=== PATIENT | female | born 1980 | race Hispanic/Latino ===

== ENCOUNTER 2021-12-06 21:09 | Emergency (ER) | payer OTHER ==
[2021-12-06 22:58] LABS: APPEARANCE,URINE Clear (CLEAR); BILIRUBIN,URINE Negative (NEGATIVE); COLOR,URINE Yellow (YELLOW); GLUCOSE, URINE (UA) Negative (NEGATIVE); KETONES,URINE Negative (NEGATIVE); LEUKOCYTE ESTERASE ,URINE Negative (NEGATIVE); NITRATE,URINE Negative (NEGATIVE); OCCULT BLOOD,URINE Trace (NEGATIVE); PROTEIN,URINE Negative (NEGATIVE)
[2021-12-06 22:59] LABS: BASOPHILS % (AUTO) 0.4 % (0.0-5.0); EOSINOPHILS % (AUTO) 0.5 % (0.0-8.0); HEMATOCRIT 45.2 % (36-48); LYMPHOCYTES % (AUTO) 30.7 % (21.0-51.0); MEAN CORPUSCULAR HGB CONC 34.5 g/dL (32.0-36.0); MEAN CORPUSCULAR VOLUME 86.9 fL (79-99); MONOCYTES % (AUTO) 6.2 % (3.0-13.0); PLATELET COUNT (AUTO) 218 K/uL (130-400); RED CELL DISTRIBUTION WIDTH 11.7 % (11.0-15.5); WHITE BLOOD COUNT (AUTO) 9.2 K/uL (4.8-10.8)
[2021-12-06] MEDS ORDERED: KETOROLAC 15MG/ML VIAL (15MG/ML) IV ONE (23:00)
[2021-12-06] MEDS ORDERED: ONDANSETRON 4MG INJ IVP ONE (23:00)
[2021-12-06] MEDS ORDERED: MORPHINE 4 MG SYG IVP ONE (23:00)
[2021-12-06] MEDS ORDERED: 0.9%NACL 1000ML 1,000 ML IV ONE (23:00)
[2021-12-06 23:09] LABS: CREATININE 0.8 mg/dL (0.5-1.5); POTASSIUM 3.6 mmol/L (3.5-5.1)
[2021-12-06 23:14] LABS: ALBUMIN 4.4 g/dL (3.5-5.0); BILIRUBIN,TOTAL 1.6 mg/dL (0.2-1.0); TOTAL PROTEIN, SERUM 7.9 g/dL (6.0-8.3)
[2021-12-06 23:20] VITALS: BP 135/72
[2021-12-06 23:22] LABS: BACTERIA,URINE Few /HPF (None Seen)
[2021-12-06] MEDS ORDERED: POLY17PO4 PO (23:56)
== END 2021-12-07 00:20 | disposition home or self-care (01) ==
LOC: EDH 21:09
DX: K59.00 Constipation, unspecified (principal); R11.0 Nausea; Z88.1 Allergy status to other antibiotic agents; Z90.49 Acquired absence of other specified parts of digestive tract
CPT/HCPCS: 36415; 74176; 80053; 81001; 85025; 93005; 96361; 96374; 96375; 99285; J1885; J2270; J2405; J7030

== ENCOUNTER 2024-04-26 11:24 | Emergency (ER) | payer OTHER ==
[~2024-04-26] VITALS: Ht 160 cm; Wt 73.5 kg
[~2024-04-26 11:24] MED LIST: POLY17PO4 PO
[2024-04-26 12:06] LABS: BASOPHILS # (AUTO) 0.05 K/uL (0.00-0.20); BASOPHILS % (AUTO) 0.7 % (0.0-5.0); EOSINOPHILS # (AUTO) 0.02 K/uL (0.00-0.70); EOSINOPHILS % (AUTO) 0.3 % (0.0-8.0); HEMATOCRIT 42.3 % (36-48); IMMATURE GRANULOCYTE ABSOLUTE 0.01 K/uL (0-1); LYMPHOCYTES # (AUTO) 1.4 K/uL (1.0-4.8); LYMPHOCYTES % (AUTO) 18.2 % (21.0-51.0); MEAN CORPUSCULAR HEMOGLOBIN 30.7 pg (27.0-33.0); MEAN CORPUSCULAR HGB CONC 35.5 g/dL (32.0-36.0); MEAN CORPUSCULAR VOLUME 86.7 fL (79-99); MONOCYTES # (AUTO) 0.4 K/uL (0.1-1.0); MONOCYTES % (AUTO) 5.6 % (3.0-13.0); NEUTROPHILS # (AUTO) 5.7 K/uL (1.8-7.7); NEUTROPHILS % (AUTO) 75.1 % (40.0-77.0); PLATELET COUNT (AUTO) 189 K/uL (130-400); RED BLOOD CELL COUNT(AUTO) 4.88 MIL/uL (4.00-5.50); RED CELL DISTRIBUTION WIDTH 11.6 % (11.0-15.5); WHITE BLOOD COUNT (AUTO) 7.6 K/uL (4.8-10.8)
[2024-04-26 12:25] LABS: ALBUMIN 4.2 g/dL (3.5-5.0); BILIRUBIN,TOTAL 2.1 mg/dL (0.2-1.0); CREATININE 0.8 mg/dL (0.5-1.0); POTASSIUM 3.9 mmol/L (3.5-5.1); TOTAL PROTEIN, SERUM 7.5 g/dL (6.0-8.3)
[2024-04-26] MEDS: mecliZINE HCL 25 MG TABLET PO STA (12:38)
[2024-04-26] MEDS: 0.9%NACL 1000ML 1,000 ML IV STA (12:38)
[2024-04-26 12:41] LABS: APPEARANCE,URINE CLEAR (CLEAR); BILIRUBIN,URINE NEGATIVE (NEGATIVE); COLOR,URINE COLORLESS (YELLOW); GLUCOSE, URINE (UA) NEGATIVE (NEGATIVE); KETONES,URINE NEGATIVE (NEGATIVE); LEUKOCYTE ESTERASE ,URINE NEGATIVE Leu/uL (NEGATIVE); NITRATE,URINE NEGATIVE (NEGATIVE); PROTEIN,URINE NEGATIVE (NEGATIVE); UROBILINOGEN,URINE 0.2 mg/dL (0.2-1.0)
[2024-04-26 12:51] LABS: ADD UA MICROSCOPIC YES
[2024-04-26 12:55] LABS: RBC,URINE 0-1 /HPF (0-1); SQUAMOUS EPITHELIAL CELL,UR RARE /HPF (0-2); WBC,URINE 0-1 /HPF (0-1)
[2024-04-26] MEDS ORDERED: MECL-302 PO (13:55)
[2024-04-26 14:04] VITALS: BP 135/76; PULSE 77; RESP 18; TEMP 98.7; O2SAT 98
== END 2024-04-26 14:10 | disposition home or self-care (01) ==
LOC: EDH 11:24
DX: R42 Dizziness and giddiness (principal); Z88.1 Allergy status to other antibiotic agents; Z90.49 Acquired absence of other specified parts of digestive tract; Z90.710 Acquired absence of both cervix and uterus
CPT/HCPCS: 99284; 96360; 70450; 84484; 80053; 85025; 81001; 36415; 93005; J7030

== ENCOUNTER 2025-02-22 10:03 | Emergency (ER) | payer OTHER ==
[~2025-02-22] VITALS: Ht 160 cm; Wt 72.6 kg
[~2025-02-22 10:03] MED LIST changes: +MECL-302 PO
--- NOTE | 2025-02-22 10:31 | ERN ---
General Chief Complaint: Neck Pain Stated Complaint: NECK PAIN Time Seen by MD: 10:04 Source: patient History of Present Illness Initial Comments Patient is a 44-year-old female coming in complaining of neck discomfort. Per patient this has been ongoing since May. Patient states that she was scheduled for an MRI but was not able to has been performed due to financial res traints. Patient also states that lately she has been having tingling running down bilateral arms. Allergies: Coded Allergies: azithromycin (Unverified Allergy, Mild, 05/16/18) ciprofloxacin (Unverified Allergy, Mild, 05/16/18) levofloxacin (Unverified Allergy, Mild, 05/16/18) propoxyphene (Unverified Allergy, Mild, 05/16/18) Uncoded Allergies: NAPSYL (Adverse Reaction, Mild, 05/16/18) SULBACTAM SODIUM (Adverse Reaction, Mild, 05/16/18) Home Meds Active Scripts Meclizine HCl (Meclizine HCl) 25 Mg Tablet, 25 MG PO TIDP PRN for DIZZINESS for 14 Days, #42 TAB Prov:MICHELLE CHAVEZ QUALITY SYSTEMS ENGINEER 04/26/24 Polyethylene Glycol 3350 (Miralax) 17 Gm Powd.pack, 17 GM PO DAILY, #1 CANISTER Prov:DARYA CHAMORROP 12/06/21 Past Medical History Past Medical History: No Pertinent History Medical History Other: UTERINE FIBROID, NECK/SPINAL INJURY Past Surgical History: Hysterectomy, Cholecystectomy ROS Dictation CONSTITUTIONAL: No chills, no fever, no weakness, no diaphoresis, no malaise. HEAD/FACE: No signs of trauma. EENT: No eye pain, no blurred vision, no tearing, no double vision, no ear pain, no ear discharge, no nose pain, no nasal congestion, no throat pain, no throat swelling, no mouth pain. RESPIRATORY: No cough, no orthopnea, no SOB, no stridor, no wheezing. CARDIOVASCULAR: No chest pain, no edema, no palpitations, no syncope. GASTROINTESTINAL/ABDOMINAL: No abdominal pain, no constipation, no diarrhea, no nausea, no vomiting. GENITOURINARY: No abnormal discharge, no dysuria, no frequent urination, no hematuria. No complaints of pain in the genitals. MUSCULOSKELETAL: No back pain, no gout, no joint pain, no joint swelling, muscle pain, muscle stiffness, no neck pain. INTEGUMENTARY: No change in color, no change in hair/nails, no dryness, no lesion, no lumps, no rash. NEUROLOGICAL/PSYCH: No anxiety, not depressed, no emotional problem, no headache, no numbness, no pre-existing deficit, no history of seizures, no t remors, no weakness. HEMATOLOGIC/LYMPHATIC: Not anemic, no history of blood clots, no apparent bleeding, no bruising, glands not swollen. All Systems Negative, Except as Noted. Physical Exam Physical Exam Dictation VITAL SIGNS: Reviewed. GENERAL APPEARANCE: Alert, oriented x3, no acute distress, obese. HEAD AND FACE: Non-traumatic. CONGESTION MAXILLARY ETHMOID EYES: PERRL, pink conjunctivas, eyelid no trauma, anterior chamber clear. EARS: Pinnas intact and no signs of trauma or erythema. Ear canals clear and no discharge. TMs erythema. NOSE: No discharge, no bleeding. BILATERAL NASAL TURBINATE SWELLING OROPHARYNX: Mouth normal, teeth no caries, tongue pink. Pharynx erythema. Tonsils no exudates, no abscesses noted. Mucous membrane moist. NECK: Supple, non-tender, no thyromegaly, no masses, no JVD, no bruits. BREAST: Deferred. CHEST: No tenderness, no crepitus, no paradoxical movement, no retractions. LUNGS: Clear, well-ventilated, symmetric, no rales, no wheezing, no rhonchi, no stridor, good breath sounds bilaterally. HEART: Regular rate, regular rhythm, no murmur, no gallops. VASCULAR: No peripheral edema. ABDOMEN: Soft, positive bowel sounds, nondistended, no guarding, nontender, no rebound, no masses no hepatomegaly, no splenomegaly, no Kathleen's sign, no hernias. RECTAL: Deferred. GENITAL: Deferred. NEUROLOGICAL: Normal speech, gross motor function intact, gross sensory function intact. MUSCULOSKELETAL: Neck nontender, full range of motion, back nontender, full range of motion. EXTREMITIES: Nontender, full range of motion. SKIN: Color pink, dry, no turgor, no rash, no lacerations, no abrasions, no contusions. LYMPHATICS: Deferred. Results Laboratory and Microbiology Lab and Micro Result Laboratory Tests Test 02/22/25 10:39 02/22/25 10:54 White Blood Count 7.3 K/uL (4.8-10.8) Red Blood Count 5.00 MIL/uL (4.00-5.50) Hemoglobin 15.0 g/dL (12.0-16.0) Hematocrit 42.6 % (36-48) Mean Corpuscular Volume 85.2 fL (79-99) Mean Corpuscular Hemoglobin 30.0 pg (27.0-33.0) Mean Corpuscular Hemoglobin Concent 35.2 g/dL (32.0-36.0) Red Cell Distribution Width 11.8 % (11.0-15.5) Platelet Count 172 K/uL (130-400) Mean Platelet Volume 11.6 fL (7.5-10.5) H Immature Granulocyte % (Auto) 0.3 % (0-1) Neutrophils (%) (Auto) 70.3 % (40.0-77.0) Lymphocytes (%) (Auto) 23.7 % (21.0-51.0) Monocytes (%) (Auto) 4.9 % (3.0-13.0) Eosinophils (%) (Auto) 0.4 % (0.0-8.0) Basophils (%) (Auto) 0.4 % (0.0-5.0) Neutrophils # (Auto) 5.1 K/uL (1.8-7.7) Lymphocytes # (Auto) 1.7 K/uL (1.0-4.8) Monocytes # (Auto) 0.4 K/uL (0.1-1.0) Eosinophils # (Auto) 0.03 K/uL (0.00-0.70) Basophils # (Auto) 0.03 K/uL (0.00-0.20) Absolute Immature Granulocyte (auto 0.02 K/uL (0-1) Nucleated Red Blood Cells 0.0 % (0.0-0.19) Sodium Level 139 mmol/L (136-145) Potassium Level 3.8 mmol/L (3.5-5.1) Chloride Level 103 mmol/L (101-111) Carbon Dioxide Level 28 mmol/L (21-32) Blood Urea Nitrogen 6 mg/dL (7-18) L Creatinine 0.7 mg/dL (0.5-1.0) Glomerular Filtration Rate Calc 109 mL/min (>90) Random Glucose 95 mg/dL (70-105) Total Calcium 9.2 mg/dL (8.5-10.1) Urine Color COLORLESS (YELLOW) Urine Appearance CLEAR (CLEAR) Urine pH 6.0 (5.0-8.0) Urine Specific [place] 1.002 (1.001-1.031) Urine Protein NEGATIVE mg/dL (NEGATIVE) Urine Glucose (UA) NEGATIVE mg/dL (NEGATIVE) Urine Ketones NEGATIVE mg/dL (NEGATIVE) Urine Occult Blood +- (TRACE) (NEGATIVE) H Urine Nitrate NEGATIVE (NEGATIVE) Urine Bilirubin NEGATIVE mg/dL (NEGATIVE) Urine Urobilinogen 0.2 mg/dL (0.2-1.0) Urine Leukocyte Esterase NEGATIVE Devi/uL Urine RBC 2-5 /HPF (0-1) H Urine WBC 0-1 /HPF (0-1) Urine Squamous Epithelial Cells FEW /HPF (0-2) Urine Bacteria RARE /HPF (None Seen) Urine HCG, Qualitative NEGATIVE (NEGATIVE) Labs Reviewed?: Yes EKG/XRAY/US/CT/MRI X-RAY Comment --CERVICAL X-RAY- NAD MDM MDM: Differential diagnosis: SINUSITIS, CHRONIC NECK PAIN Rationale: Tests considered and ordered secondary to shared decision making include: labs, ECG and radiology Previous outside records reviewed: Old ER visits. Risk of complication and/or morbidity or mortality of patient management: None Medications-Per medication reconciliation Need for hospitalization: Patient does meet criteria for hospitalization. Need for emergency major/minor surgery: No There are no social concerns with this patient. Prescription drug management Prescriptions will include symptomatic care Patient's prior external medical records from other ER visits were reviewed by me as indicated. Prior testing and results from previous visits were reviewed. Prior tests were taken into account with medical decision making and resource utilization, independent historian/historians were used to obtain complete medical history. I independently interpreted the test that were performed, results were reviewed by me and considered findings on radiology if ordered. Medical management and examination interpretation discussions were had by me with other qualified healthcare professionals as indicated for the patient's care. ED Course Orders Procedure Category Date Status Time Cbc With Differential LAB 02/22/25 Complete 10:19 Basic Metabolic Panel LAB 02/22/25 Complete 10:19 Urinalysis LAB 02/22/25 Complete W/Microscopic 10:19 Cerv Spine 2-3vws RAD 02/22/25 Taken 10:19 Meclizine Hcl 25 Mg PHA 02/22/25 Complete (Antivert 25 Mg) 11:30 ,Urine Test LAB 02/22/25 Complete 11:34 Ketorolac PHA 02/22/25 Complete Tromethamine 15mg/Ml 12:30 Orphenadrine Citrate PHA 02/22/25 Complete (Norflex) 12:30 Current Medications Medications (Trade) Dose Ordered Sig/Lindsay Route PRN Reason Start Time Stop Time Status Last Admin Dose Admin Ketorolac Tromethamine (toRADol) 15 mg ONCE ONCE IV 02/22/25 12:30 02/22/25 12:31 DC 02/22/25 12:33 Meclizine HCl (ANTIvert 25 mg) 25 mg ONCE ONCE PO 02/22/25 11:30 02/22/25 11:31 DC 02/22/25 11:35 Orphenadrine Citrate (Norflex) 60 mg ONCE ONCE IM 02/22/25 12:30 02/22/25 12:31 DC 02/22/25 12:33 Vital Signs Date Time Temp Pulse Resp B/P (MAP) Pulse Ox O2 Delivery O2 Flow Rate FiO2 02/22/25 11:25 98.1 77 20 148/82 99 Room Air* 0 21 02/22/25 10:26 98.1 77 20 148/82 98 Room Air 0 DX & DISP Disposition: Discharge Departure Impression: Primary Impression: Vertigo Additional Impression: Sinusitis, acute maxillary Condition: Stable Scripts Loratadine (Loratadine) 10 Mg Tablet 1 TAB PO DAILY for allergy symptoms for 30 Days, #30 TAB 0 Refills Prov: RITA VILLEGAS MD 02/22/25 Fluticasone Propionate (Flonase Nasal [place]) 50 Mcg/Actuation [place] 2 SPRAY NS DAILY for 30 Days, #16 GM 0 Refills Prov: RITA VILLEGAS MD 02/22/25 Amoxicillin/Potassium Clav (Amox Tr-K Clv 875-125 mg Tab) 875 Mg-125 Mg Tablet 1 TAB PO BID for 10 Days, #20 TAB 0 Refills Prov: RITA VILLEGAS MD 02/22/25 Additional Instructions: FOLLOW-UP WITH PRIMARY CARE PROVIDER IN 1 TO 2 DAYS. TAKE MEDICATIONS DIRECTED HERE IN THE EMERGENCY ROOM. OKAY TO CONTINUE HOME MEDICATIONS UNLESS OTHERWISE DISCUSSED DURING YOUR VISIT IN THE EMERGENCY ROOM TODAY. RETURN TO YOUR NEAREST EMERGENCY ROOM IF SYMPTOMS WORSEN OR IF THERE IS NO IMPROVEMENT. CALL 911 IF YOU NEED IMMEDIATE ASSISTANCE. TAKE TYLENOL [id number] NEEDED AND IF NO CONTRAINDICATIONS ARE PRESENT. INCREASE ORAL HYDRATION. A WOUND CULTURE OR URINE CULTURE WAS ORDERED HERE IN THE EMERGENCY ROOM DEPARTMENT PLEASE FOLLOW-UP WITH PRIMARY CARE PROVIDER AND ADVISE THEM TO GET REPORTS FROM OUR FACILITY. IF YOU HAD ANY GORDON WRAP/SPLINTS THAT WERE APPLIED HERE, PLEASE DO NOT REMOVE THEM UNTIL YOU SEE YOUR PRIMARY CARE OR SPECIALTY. REFERRALS: Referrals: ALVIN CABRERA (PCP) Time of Disposition: 12:44 RITA VILLEGAS MD Feb 22, 2025 10:31
[2025-02-22 11:25] LABS: IMMATURE GRANULOCYTE ABSOLUTE 0.02 K/uL (0-1); NUCLEATED RED BLOOD CELLS 0.0 % (0.0-0.19); PLATELET COUNT (AUTO) 172 K/uL (130-400); RED BLOOD CELL COUNT(AUTO) 5.00 MIL/uL (4.00-5.50); RED CELL DISTRIBUTION WIDTH 11.8 % (11.0-15.5); WHITE BLOOD COUNT (AUTO) 7.3 K/uL (4.8-10.8)
[2025-02-22 11:34] LABS: CREATININE 0.7 mg/dL (0.5-1.0); GLOMERULAR FILTR. RATE CALC 109.0 mL/min (>90); GLUCOSE,RANDOM 95.0 mg/dL (70-105); SODIUM SERUM 139.0 mmol/L (136-145); UREA NITROGEN, BLOOD 6.0 mg/dL (7-18)
[2025-02-22 11:39] LABS: APPEARANCE,URINE CLEAR (CLEAR); GLUCOSE, URINE (UA) NEGATIVE (NEGATIVE); LEUKOCYTE ESTERASE ,URINE NEGATIVE Leu/uL (NEGATIVE); NITRATE,URINE NEGATIVE (NEGATIVE); OCCULT BLOOD,URINE +- (TRACE) (NEGATIVE)
[2025-02-22 12:05] LABS: SQUAMOUS EPITHELIAL CELL,UR FEW /HPF (0-2)
[2025-02-22] MEDS: ORPHENADRINE 60MG/2ML IM ONE (12:33)
[2025-02-22] MEDS ORDERED: FLUT16H NS (12:45)
[2025-02-22] MEDS ORDERED: AMOX1TAB16 PO (12:45)
[2025-02-22] MEDS ORDERED: LORA10TA7 PO (12:45)
[2025-02-22 12:46] VITALS: BP 142/80; PULSE 75; RESP 20; TEMP 98.1; O2SAT 98
--- NOTE | 2025-02-22 13:16 | HMCIMG ---
EXAM: CR Cervical spine, 2 View. CLINICAL HISTORY: neck pain COMPARISON: None provided. FINDINGS: BONES: No acute fracture or aggressive appearing osseous lesion. DISCS/DEGENERATIVE CHANGES: Mild disc disease at C6-C7. Posterior vertebral body alignment is within normal limits. SOFT TISSUES: No prevertebral soft tissue swelling. The visualized lung apices are clear. IMPRESSION: 1. No acute findings. 2. Mild disc disease at C6-C7. /[place]
== END 2025-02-22 12:48 | disposition home or self-care (01) ==
LOC: EDH 10:03
DX: R42 Dizziness and giddiness (principal); J01.00 Acute maxillary sinusitis, unspecified; Z88.1 Allergy status to other antibiotic agents; Z90.49 Acquired absence of other specified parts of digestive tract; Z90.710 Acquired absence of both cervix and uterus
CPT/HCPCS: 99284; 96374; 80048; 85025; 81001; 81025; 36415; 72040; 96372; J1885; J2360

== ENCOUNTER 2025-05-18 15:58 | Emergency (ER) | payer OTHER ==
[~2025-05-18] VITALS: Ht 160 cm; Wt 83.9 kg
[~2025-05-18 15:58] MED LIST changes: +AMOX1TAB16 PO; +FLUT16H NS; +LORA10TA7 PO
--- NOTE | 2025-05-18 16:27 | ERN ---
ED Note History of Present Illness Stated Complaint: HEADACHE Chief Complaint: Headache Time Seen by MD: 16:03 Dictation: PATIENT IS A 45-YEAR-OLD FEMALE HERE WITH HER WITH COMPLAINTS OF HAVING CHRONIC NECK AND OCCIPITAL HEADACHE THAT RUNS TO BILATERAL TEMPORAL AREAS ONSET WAS TWO YEARS PRIOR TO ARRIVAL ON-CALL. NO FEVER NO CHILLS NO NAUSEA VOMITING. SHE STATES SHE HAS BEEN WAITING SINCE JUNE OF THIS YEAR FOR AN MRI OF THE BRAIN HOWEVER THEY COULD NOT GET IT APPROVED BY YOUR INSURANCE. SHE SAW HER DOCTOR ABOUT THE SAME COMPLAINT TWO DAYS AGO HE PRESCRIBED TYLENOL NO. 3, SHE TOOK ONE TODAY. SHE HAS ALREADY BEEN TO THE EMERGENCY ROOM SEVERAL TIMES FOR THE SAME COMPLAINT HAS HAD A PRIOR CT OF THE HEAD BACK IN APRIL OF 2024 WHICH WAS NEGATIVE AND X-RAY OF HER CERVICAL SPINE WHICH WAS NEGATIVE EXCEPT FOR DEGENERATIVE CHANGES SEE SIX C7. NIH IS 0. Allergies: Coded Allergies: azithromycin (Unverified Allergy, Mild, 05/16/18) ciprofloxacin (Unverified Allergy, Mild, 05/16/18) levofloxacin (Unverified Allergy, Mild, 05/16/18) propoxyphene (Unverified Allergy, Mild, 05/16/18) Uncoded Allergies: NAPSYL (Adverse Reaction, Mild, 05/16/18) SULBACTAM SODIUM (Adverse Reaction, Mild, 05/16/18) Home Meds Active Scripts Loratadine (Loratadine) 10 Mg Tablet, 1 TAB PO DAILY for allergy symptoms for 30 Days, #30 TAB 0 Refills Prov:RITA VILLEGAS MD 02/22/25 Fluticasone Propionate (Flonase Nasal [place]) 50 Mcg/Actuation [place], 2 SPRAY NS DAILY for 30 Days, #16 GM 0 Refills Prov:RITA VILLEGAS MD 02/22/25 Amoxicillin/Potassium Clav (Amox Tr-K Clv 875-125 mg Tab) 875 Mg-125 Mg Tablet, 1 TAB PO BID for 10 Days, #20 TAB 0 Refills Prov:RITA VILLEGAS MD 02/22/25 Meclizine HCl (Meclizine HCl) 25 Mg Tablet, 25 MG PO TIDP PRN for DIZZINESS for 14 Days, #42 TAB Prov:MICHELLE CHAVEZ DOUGH MAKER 04/26/24 Polyethylene Glycol 3350 (Miralax) 17 Gm Powd.pack, 17 GM PO DAILY, #1 CANISTER Prov:FITTING,ROXANA-TAIWO ORDER ENTRY TECHNICIAN 12/06/21 Past Medical History Past Medical History: No Pertinent History Additional Past Medical Hx: UTERINE FIBROID, NECK/SPINAL INJURY Surgical History: Hysterectomy, Cholecystectomy History: Not Applicable RN Note Reviewed/Agreed w/PFSH: Yes Review of System Dictation CONSTITUTIONAL: NEGATIVE EXCEPT FOR HPI HEAD/FACE: NEGATIVE EXCEPT FOR HPI EENT: NEGATIVE EXCEPT FOR HPI RESPIRATORY: NEGATIVE EXCEPT FOR HPI GASTROINTESTINAL/ABDOMINAL: NEGATIVE EXCEPT FOR HPI GENITOURINARY: NEGATIVE EXCEPT FOR HPI MUSCULOSKELETAL: NEGATIVE EXCEPT FOR HPI CHRONIC NECK PAIN TWO YEARS INTEGUMENTARY: NEGATIVE EXCEPT FOR HPI NEUROLOGICAL/PSYCH: NEGATIVE EXCEPT FOR HPI BILATERAL OCCIPITAL HEADACHE THAT RADIATES TO THE BILATERAL TEMPORAL AREAS. TWO YEAR HEMATOLOGIC/LYMPHATIC: NEGATIVE EXCEPT FOR HPI ALL SYSTEMS NEGATIVE, EXCEPT NOTED ABOVE. 13 POINT REVIEW OF SYSTEMS ASSESSED AND ALL NEGATIVE EXCEPT FOR ABOVE. Initial Vital Sign VS Vital Signs Date Time Temp Pulse Resp B/P (MAP) Pulse Ox O2 Delivery O2 Flow Rate FiO2 05/18/25 16:01 97.5 80 16 152/83 98 Room Air 0 Physical Exam Dictation VITAL SIGNS REVIEWED GENERAL APPEARANCE: ALERT, ORIENTED X 3, MODERATE ACUTE DISTRESS, WELL DEVELOPED, NOURISHED. HEAD AND FACE: NON-TRAUMATIC. EYES: PERRL, PINK CONJUNCTIVAS, EYELID NO TRAUMA, ANTERIOR CHAMBER WITH ARCUS SENILIS. EARS: PINNAS INTACT AND NO SIGNS OF TRAUMA OR ERYTHEMA EAR CANALS CLEAR AND NO DISCHARGE TM NO ERYTHEMA NOSE: NO DISCHARGE, NO BLEEDING. OROPHARYNX: MOUTH NORMAL, TONGUE PINK, PHARYNX CLEAR,NO ERYTHEMA, TONSILS NO EXUDATES, NO ABSCESSES NOTED, MUCOUS MEMBRANE MOIST NECK: SUPPLE, NON-TENDER, NO THYROMEGALY, NO MASSES, NO JVD, NO BRUITS BREAST:DEFERRED CHEST:NO TENDERNESS, NO CREPITUS, NO PARADOXICAL MOVEMENT, NO RETRACTIONS LUNGS:CLEAR, WELL-VENTILATED, SYMMETRIC, NO RALES, NO WHEEZING, NO RHONCHI, NO STRIDOR, GOOD BREATH SOUNDS BILATERALLY HEART: REGULAR RATE, REGULAR RHYTHM, NO MURMUR, NO GALLOPS VASCULAR: NO PERIPHERAL EDEMA, ABDOMEN: SOFT, POSITIVE BOWEL SOUNDS, NONDISTENDED, NO GUARDING, NONTENDER, NO REBOUND, NO MASSES NO HEPATOMEGALY, NO SPLENOMEGALY, NO SALINAS'S SIGN, NO HERNIAS. RECTAL: DEFERRED GENITAL: DEFERRED NEUROLOGICAL: DIFFUSE MILD POSTERIOR CERVICAL TENDERNESS. NO STEP-OFFS, FULL RANGE OF MOTION, BACK NONTENDER, FULL RANGE OF MOTION, NEUROVASCULAR CMS INTACT TO ALL EXTREMITIES EXTREMITIES: NONTENDER, FULL RANGE OF MOTION SKIN: COLOR PINK, DRY, NO TURGOR, NO RASH, NO LACERATIONS, NO ABRASIONS, NO CONTUSIONS. LYMPHATIC: DEFERRED Results (Laboratory/Radiology) Laboratory/Radiology Laboratory Tests Test 05/18/25 17:11 White Blood Count 10.3 K/uL (4.8-10.8) Red Blood Count 5.11 MIL/uL (4.00-5.50) Hemoglobin 15.4 g/dL (12.0-16.0) Hematocrit 44.5 % (36-48) Mean Corpuscular Volume 87.1 fL (79-99) Mean Corpuscular Hemoglobin 30.1 pg (27.0-33.0) Mean Corpuscular Hemoglobin Concent 34.6 g/dL (32.0-36.0) Red Cell Distribution Width 11.8 % (11.0-15.5) Platelet Count 242 K/uL (130-400) Mean Platelet Volume 10.6 fL (7.5-10.5) H Immature Granulocyte % (Auto) 0.3 % (0-1) Neutrophils (%) (Auto) 69.1 % (40.0-77.0) Lymphocytes (%) (Auto) 25.0 % (21.0-51.0) Monocytes (%) (Auto) 4.9 % (3.0-13.0) Eosinophils (%) (Auto) 0.3 % (0.0-8.0) Basophils (%) (Auto) 0.4 % (0.0-5.0) Neutrophils # (Auto) 7.2 K/uL (1.8-7.7) Lymphocytes # (Auto) 2.6 K/uL (1.0-4.8) Monocytes # (Auto) 0.5 K/uL (0.1-1.0) Eosinophils # (Auto) 0.03 K/uL (0.00-0.70) Basophils # (Auto) 0.04 K/uL (0.00-0.20) Absolute Immature Granulocyte (auto 0.03 K/uL (0-1) Nucleated Red Blood Cells 0.0 % (0.0-0.19) Sodium Level 138 mmol/L (136-145) Potassium Level 3.7 mmol/L (3.5-5.1) Chloride Level 101 mmol/L (101-111) Carbon Dioxide Level 27 mmol/L (21-32) Blood Urea Nitrogen 8 mg/dL (7-18) Creatinine 0.7 mg/dL (0.5-1.0) Glomerular Filtration Rate Calc 108 mL/min (>90) Random Glucose 109 mg/dL (70-105) H Total Calcium 8.9 mg/dL (8.5-10.1) Labs Reviewed?: Yes ED Course ED Course Orders Procedure Category Date Status Time Cbc With Differential LAB 05/18/25 Complete 16:24 Basic Metabolic Panel LAB 05/18/25 Complete 16:24 Cyclobenzaprine Hcl PHA 05/18/25 Complete (Cyclobenzaprine Hcl 16:30 Dexamethasone 4mg/Ml PHA 05/18/25 Complete 1ml Vial (Dexametha 16:30 Ketorolac PHA 05/18/25 Complete Tromethamine 30mg/Ml 16:30 Hydrocodone/Apap PHA 05/18/25 Complete 5/325 ([place] 5/325mg) 16:30 Current Medications Medications (Trade) Dose Ordered Sig/Lindsay Route PRN Reason Start Time Stop Time Status Last Admin Dose Admin Acetaminophen/ Hydrocodone Bitart (NORco 5/325MG) 1 tab ONCE ONCE PO 05/18/25 16:30 05/18/25 16:31 DC 05/18/25 18:28 Cyclobenzaprine HCl (Cyclobenzaprine HCl) 10 mg ONCE ONCE PO 05/18/25 16:30 05/18/25 16:31 DC 05/18/25 18:26 Dexamethasone Sodium Phosphate (dexaMETHasone 4MG/ML 1ML VIAL) 8 mg ONCE ONCE IM 05/18/25 16:30 05/18/25 16:31 DC 05/18/25 18:27 Ketorolac Tromethamine (toRADol) 30 mg ONCE ONCE IVP 05/18/25 16:30 05/18/25 16:31 DC 05/18/25 18:26 Vital Signs Date Time Temp Pulse Resp B/P (MAP) Pulse Ox O2 Delivery O2 Flow Rate FiO2 05/18/25 16:01 97.5 80 16 152/83 98 Room Air 0 1840/PATIENT DISCHARGED HOME AFTER RECEIVING MEDICATIONS FOR TENSION HEADACHE. STATES SHE FEELS MARKEDLY IMPROVED DISCHARGED HOME WITH FIORICET AND REFERRED TO DR. GIOVANNI RUIZ HAS A DESIGNATED [employer]AT PRODUCTION SUPERVISOR Medical Decision Making MDM MEDICAL DECISION-MAKING BASED ON BASIC LABS FOR A TENSION HEADACHE TO RULE ANEMIA INFECTION OR DEHYDRATION LABS UNREMARKABLE EXCEPT FOR HYPERGLYCEMIA PATIENT TREATED WITH A CLINICAL COCKTAIL FOR TENSION HEADACHE SHE WILL BE REFERRED TO DR. HERNANDEZ/NEUROLOGIST FOR MANAGEMENT FIORICET WE WILL BE PRESCRIBED FOR TENSION HAD DX & DISP Disposition: Discharge Departure Impression: Primary Impression: Tension headache, chronic Additional Impressions: Chronic neck pain, Hyperglycemia Condition: Stable Scripts Butalb/Acetaminophen/Caffeine (Fioricet) 50 Mg-325 Mg-40 Mg Tab 2 TAB PO Q4PRN for HEADACHE, #20 TAB 0 Refills Prov: DAYRON ALBRIGHT 05/18/25 Additional Instructions: Follow-up with primary care provider in 1 to 2 days. Take medications as directed here in the emergency room. Okay to continue home medications unless otherwise discussed during your visit in the emergency room today. Return to your nearest emergency room if symptoms worsen or if there is no improvement. Call 911 if you need immediate assistance. Take Tylenol or Motrin [id number] as needed and if no contraindications are present. Increase oral hydration. A wound culture or urine culture was ordered here in the emergency room department please follow-up with primary care provider and advise them to get repeat ports from our facility. If you had any Justus wrap/splints that were applied here, please do not remove them until you see your primary care or specialty. Take Fioricet as directed for your chronic headaches. Follow up with neurologist, call for an appointment tomorrow.. Also see your primary care do ctor for MRI MRI Referrals: ALVIN CABRERA (PCP) GIOVANNI MCKEON MD Time of Disposition: 18:38 I have reviewed the case, and I agree with, Diagnosis and Plan DAYRON ALBRIGHT May 18, 2025 16:27
[2025-05-18 17:17] LABS: IMMATURE GRANULOCYTE ABSOLUTE 0.03 K/uL (0-1); NUCLEATED RED BLOOD CELLS 0.0 % (0.0-0.19); PLATELET COUNT (AUTO) 242 K/uL (130-400); RED BLOOD CELL COUNT(AUTO) 5.11 MIL/uL (4.00-5.50); RED CELL DISTRIBUTION WIDTH 11.8 % (11.0-15.5); WHITE BLOOD COUNT (AUTO) 10.3 K/uL (4.8-10.8)
[2025-05-18 17:26] LABS: CREATININE 0.7 mg/dL (0.5-1.0); GLOMERULAR FILTR. RATE CALC 108.0 mL/min (>90); GLUCOSE,RANDOM 109.0 mg/dL (70-105); SODIUM SERUM 138.0 mmol/L (136-145); UREA NITROGEN, BLOOD 8.0 mg/dL (7-18)
[2025-05-18] MEDS: CYCLOBENZAPRINE HCL 10 MG TABLET PO ONE (18:26)
[2025-05-18] MEDS: HYDROcodone/APAP 5/325 1 TAB TABLET PO ONE (18:28)
[2025-05-18] MEDS ORDERED: FIORIT PO (18:40)
[2025-05-18 19:22] VITALS: BP 131/73; PULSE 76; RESP 18; TEMP 97.9; O2SAT 98
== END 2025-05-18 19:22 | disposition home or self-care (01) ==
LOC: EDH 15:58
DX: G44.209 Tension-type headache, unspecified, not intractable (principal); G89.29 Other chronic pain; M54.2 Cervicalgia; R73.9 Hyperglycemia, unspecified; Z88.1 Allergy status to other antibiotic agents; Z90.49 Acquired absence of other specified parts of digestive tract; Z90.710 Acquired absence of both cervix and uterus
CPT/HCPCS: 99284; 96374; 80048; 85025; 36415; 96372; J1100; J1885

== ENCOUNTER 2025-05-25 22:59 | Emergency (ER) | payer OTHER ==
[~2025-05-25] VITALS: Ht 165.1 cm; Wt 81.6 kg
[~2025-05-25 22:59] MED LIST changes: +FIORIT PO
[2025-05-25] MEDS: 0.9%NACL 1000ML 1,000 ML IV SCH (23:14)
[2025-05-25] MEDS: PROCHLORPERAZINE 10MG/2ML INJ IV ONE (23:14)
[2025-05-25 23:20] LABS: IMMATURE GRANULOCYTE ABSOLUTE 0.04 K/uL (0-1); NUCLEATED RED BLOOD CELLS 0.0 % (0.0-0.19); PLATELET COUNT (AUTO) 219 K/uL (130-400); RED BLOOD CELL COUNT(AUTO) 5.18 MIL/uL (4.00-5.50); RED CELL DISTRIBUTION WIDTH 11.8 % (11.0-15.5); WHITE BLOOD COUNT (AUTO) 9.1 K/uL (4.8-10.8)
[2025-05-25 23:28] LABS: CREATININE 0.8 mg/dL (0.5-1.0); GLOMERULAR FILTR. RATE CALC 92.0 mL/min (>90); GLUCOSE,RANDOM 103.0 mg/dL (70-105); SODIUM SERUM 137.0 mmol/L (136-145); UREA NITROGEN, BLOOD 7.0 mg/dL (7-18)
--- NOTE | 2025-05-25 23:32 | ERN ---
General Chief Complaint: Headache Stated Complaint: HEADACHE Time Seen by MD: 23:02 History of Present Illness Initial Comments 45-year-old female history of migraines here for evaluation of headache. Patient states that she has been having headaches for the past month. It worsened today so she took a tizanidine. States that bright lights worse in the pain. As seen her primary care doctor who prescribed multiple medications. States that she also has been given other medications for headaches including tizanidine and Fioricet. She is currently taking antibiotics for a sinus infection. Allergies: Coded Allergies: azithromycin (Unverified Allergy, Mild, 05/16/18) ciprofloxacin (Unverified Allergy, Mild, 05/16/18) levofloxacin (Unverified Allergy, Mild, 05/16/18) propoxyphene (Unverified Allergy, Mild, 05/16/18) Uncoded Allergies: NAPSYL (Adverse Reaction, Mild, 05/16/18) SULBACTAM SODIUM (Adverse Reaction, Mild, 05/16/18) Home Meds Active Scripts Butalb/Acetaminophen/Caffeine (Fioricet) 50 Mg-325 Mg-40 Mg Tab, 2 TAB PO Q4PRN for HEADACHE, #20 TAB 0 Refills Prov:DAYRON ALBRIGHT [employer] 05/18/25 Loratadine (Loratadine) 10 Mg Tablet, 1 TAB PO DAILY for allergy symptoms for 30 Days, #30 TAB 0 Refills Prov:RITA VILLEGAS MD 02/22/25 Fluticasone Propionate (Flonase Nasal [place]) 50 Mcg/Actuation [place], 2 SPRAY NS DAILY for 30 Days, #16 GM 0 Refills Prov:RITA VILLEGAS MD 02/22/25 Amoxicillin/Potassium Clav (Amox Tr-K Clv 875-125 mg Tab) 875 Mg-125 Mg Tablet, 1 TAB PO BID for 10 Days, #20 TAB 0 Refills Prov:RITA VILLEGAS MD 02/22/25 Meclizine HCl (Meclizine HCl) 25 Mg Tablet, 25 MG PO TIDP PRN for DIZZINESS for 14 Days, #42 TAB Prov:MICHELLE CHAVEZ CNP 04/26/24 Polyethylene Glycol 3350 (Miralax) 17 Gm Powd.pack, 17 GM PO DAILY, #1 CANISTER Prov:DARYA CHAMORRO [employer] 12/06/21 Past Medical History Past Medical History: No Pertinent History Medical History Other: UTERINE FIBROID, NECK/SPINAL INJURY Past Surgical History: Hysterectomy, Cholecystectomy Female( History) History: Not Applicable Neuro: (+) headache Physical Exam Physical Exam Dictation GENERAL APPEARANCE NAD, activity normal for age, well developed/ well nourished, no cyanosis, pallor, or diaphoresis. EYES lids/conjunctiva normal. EARS/NOSE/THROAT Mucous membranes moist, nares normal, lips/teeth normal uvula midline without oral pharyngeal erythema, exudate or swelling TMs normal bilaterally. No lymphangitis/lymphedema. HEAD/NECK normocephalic atraumatic, no facial trauma, neck is supple. No Kernig sign RESPIRATORY respiratory effort normal, speaks in full sentences, no tripod position, no accessory muscle use. Lungs clear to auscultation without rhonchi, wheezes, rales CARDIAC Regular rate and rhythm, no edema. ABDOMINAL Soft, ND/NT. No evidence of fluid wave. No pulsatile masses on exam, rebound tenderness, Kathleen sign or pain over Mcburney's point. MUSCLES/EXTREMITIES No abnormal range of motion, no swelling. SKIN Warm, pink and dry. No rashes, dermatoses, petechiae or lesions. NEUROLOGICAL Speech is clear and appropriate. Normal level of consciousness. Gait and coordination are normal. 5/5 strength in all extremities. PSYCH Normal mood and affect. Judgement/competence is appropriate Results Laboratory and Microbiology Lab and Micro Result Laboratory Tests Test 05/25/25 23:12 White Blood Count 9.1 K/uL (4.8-10.8) Red Blood Count 5.18 MIL/uL (4.00-5.50) Hemoglobin 15.4 g/dL (12.0-16.0) Hematocrit 45.0 % (36-48) Mean Corpuscular Volume 86.9 fL (79-99) Mean Corpuscular Hemoglobin 29.7 pg (27.0-33.0) Mean Corpuscular Hemoglobin Concent 34.2 g/dL (32.0-36.0) Red Cell Distribution Width 11.8 % (11.0-15.5) Platelet Count 219 K/uL (130-400) Mean Platelet Volume 11.1 fL (7.5-10.5) H Immature Granulocyte % (Auto) 0.4 % (0-1) Neutrophils (%) (Auto) 53.1 % (40.0-77.0) Lymphocytes (%) (Auto) 39.2 % (21.0-51.0) Monocytes (%) (Auto) 5.6 % (3.0-13.0) Eosinophils (%) (Auto) 1.1 % (0.0-8.0) Basophils (%) (Auto) 0.6 % (0.0-5.0) Neutrophils # (Auto) 4.8 K/uL (1.8-7.7) Lymphocytes # (Auto) 3.6 K/uL (1.0-4.8) Monocytes # (Auto) 0.5 K/uL (0.1-1.0) Eosinophils # (Auto) 0.10 K/uL (0.00-0.70) Basophils # (Auto) 0.05 K/uL (0.00-0.20) Absolute Immature Granulocyte (auto 0.04 K/uL (0-1) Nucleated Red Blood Cells 0.0 % (0.0-0.19) Sodium Level 137 mmol/L (136-145) Potassium Level 4.0 mmol/L (3.5-5.1) Chloride Level 100 mmol/L (101-111) L Carbon Dioxide Level 30 mmol/L (21-32) Blood Urea Nitrogen 7 mg/dL (7-18) Creatinine 0.8 mg/dL (0.5-1.0) Glomerular Filtration Rate Calc 92 mL/min (>90) Random Glucose 103 mg/dL (70-105) Total Calcium 9.1 mg/dL (8.5-10.1) MDM Patient serial female with likely migraine. We will give migraine cocktail and reassess. Disposition pending results of labs and clinical improvement. MDM: DIFFERENTIAL DIAGNOSIS: Tension headache, migraine, RATIONALE: TESTS CONSIDERED AND ORDERED SECONDARY TO SHARED DECISION MAKING INCLUDE: PREVIOUS OUTSIDE RECORDS REVIEWED: OLD ER VISITS. RISK OF COMPLICATION AND/OR MORBIDITY OR MORTALITY OF PATIENT MANAGEMENT: NONE MEDICATIONS-PER MEDICATION RECONCILIATION NEED FOR HOSPITALIZATION: PATIENT DOES NOT MEET CRITERIA FOR HOSPITALIZATION. NEED FOR EMERGENCY MAJOR/MINOR SURGERY: NO THERE ARE NO SOCIAL CONCERNS WITH THIS PATIENT. PRESCRIPTION DRUG MANAGEMENT PRESCRIPTIONS WILL INCLUDE SYMPTOMATIC CARE PATIENT'S PRIOR EXTERNAL MEDICAL RECORDS FROM OTHER ER VISITS WERE REVIEWED BY ME INDICATED. PRIOR TESTING AND RESULTS FROM PREVIOUS VISITS WERE REVIEWED. PRIOR TESTS WERE TAKEN INTO ACCOUNT WITH MEDICAL DECISION MAKING AND RESOURCE UTILIZATION, INDEPENDENT HISTORIAN/HISTORIANS WERE USED TO OBTAIN COMPLETE MEDICAL HISTORY. I INDEPENDENTLY INTERPRETED THE TEST THAT WERE PERFORMED, RESULTS WERE REVIEWED BY ME AND CONSIDERED FINDINGS ON RADIOLOGY IF ORDERED. MEDICAL MANAGEMENT AND EXAMINATION INTERPRETATION DISCUSSIONS WERE HAD BY ME WITH OTHER QUALIFIED HEALTHCARE PROFESSIONALS INDICATED FOR THE PATIENT'S CARE. ED Course Orders Procedure Category Date Status Time Cbc With Differential LAB 05/25/25 Complete 23:00 Basic Metabolic Panel LAB 05/25/25 Complete 23:00 Prochlorperazine PHA 05/25/25 Complete 10mg/2ml Inj 23:00 Ketorolac PHA 05/25/25 Complete Tromethamine 15mg/Ml 23:00 Diphenhydramine Hcl PHA 05/25/25 Complete (Benadryl Inj) 23:00 0.9%Nacl 1000ml (Ns PHA 05/25/25 In Process 1000ml) 23:00 Current Medications Medications (Trade) Dose Ordered Sig/Lindsay Route PRN Reason Start Time Stop Time Status Last Admin Dose Admin Diphenhydramine HCl (BENAdryl INJ) 25 mg ONCE ONCE IV 05/25/25 23:00 05/25/25 23:11 DC 05/25/25 23:14 Ketorolac Tromethamine (toRADol) 15 mg ONCE ONCE IV 05/25/25 23:00 05/25/25 23:11 DC 05/25/25 23:14 Prochlorperazine Edisylate (Compazine 10mg/ 2ml Inj) 10 mg ONCE ONCE IV 05/25/25 23:00 05/25/25 23:11 DC 05/25/25 23:14 Sodium Chloride 1,000 ml @ 0 mls/hr Q0M IV 05/25/25 23:00 06/24/25 22:59 05/25/25 23:14 Vital Signs Date Time Temp Pulse Resp B/P (MAP) Pulse Ox O2 Delivery O2 Flow Rate FiO2 05/25/25 23:19 97.2 88 18 145/66 98 Room Air* 0 21 Patient states she feels better. Has prescriptions for his medications at home including Excedrin. We will discharge home when she completes her fluid bolus DX & DISP Disposition: Discharge Departure Impression: Primary Impression: Migraine headache with aura Condition: Stable Referrals: ALVIN CABRERA (PCP) SANDI VALDIVIA MD May 25, 2025 23:32
[2025-05-26 01:11] VITALS: BP 136/68; PULSE 82; RESP 18; TEMP 98; O2SAT 98
== END 2025-05-26 01:13 | disposition home or self-care (01) ==
LOC: EDH 22:59
DX: G43.109 Migraine with aura, not intractable, without status migrainosus (principal); Z88.1 Allergy status to other antibiotic agents; Z88.8 Allergy status to other drugs, medicaments and biological substances; Z90.49 Acquired absence of other specified parts of digestive tract; Z90.710 Acquired absence of both cervix and uterus; Z86.018 Personal history of other benign neoplasm
CPT/HCPCS: 99284; 96374; 96375; 80048; 85025; 36415; J1885; J1200; J7030; J0780